=== PATIENT | female | born 1940 ===

== ENCOUNTER 2022-03-12 03:02 | Inpatient (IN) | payer MEDICARE, OTHER ==
[~2022-03-12] VITALS: Ht 147.3 cm; Wt 54.6 kg
[2022-03-12] VITALS (7 sets, daily range): BP systolic 89–109; BP diastolic 49–84
[2022-03-12] MEDS ORDERED: ONDANSETRON 4 MG/2 ML (SDV) Z0FRAN IVP PRN (06:30)
[2022-03-12] MEDS ORDERED: morphine INJ 4 MG/ML 1 ML (VIAL/SYRINGE) IV PRN (06:30)
[2022-03-12] MEDS ORDERED: NITROGLYCERIN 0.4 MG SL TABS BTL 25'S SL PRN (06:30)
[2022-03-12] MEDS ORDERED: PATIENT MAY USE OWN MEDS, ALL PO SCH (06:30)
--- OUTSIDE RECORDS SUMMARY | 2022-03-12 09:50 | XMS REPORT | Clinical Summary ---
Author Author [facility] Organization [facility] Address Unknown Phone Unavailable Care Team Providers Care Cathode Washer Name Role Phone Risa Deleon MD Unavailable Osiris Wesley DO PCP Source Comments Some departments are not documenting in the electronic medical record. If you d o not see the information that you expected, contact Release of Information in [facility] Information Management department at [phone] for further assistan ce in locating additional records.[facility] Allergies Comments Active Allergy Reactions Severity Noted Date Skin irritation. Pt tolerates paper tape Adhesive Tape (Rosins) RASH Medium 020 Pt reports anxiety attack w/ this medication Epinephrine ANXIETY Low 06/27/2019 Benzalkonium Chloride HIVES Medium 12/21/19 16 Cefdinir DIARRHEA Low 12/21/2015 Medications End Date Status Medication Sig Dispensed Refills Start Date Active ALPRAZolam (XANAX) 0.25 Take 0.375 mg 0 mg tablet by mouth daily. Active atenolol (TENORMIN) 50 mg Take 50 mg by 0 tablet mouth twice daily. Active hydrochlorothiazide Take 25 mg by 0 (HYDRODIURIL) 25 mg mouth every tablet morning. Active isosorbide mononitrate SR Take 60 mg by 0 (IMDUR) 60 mg tablet mouth twice daily (at 10AM and 10PM). Active pravastatin (PRAVACHOL) Take 20 mg by 0 20 mg tablet mouth at bedtime daily. Active hyoscyamine (ANASPAZ; Place 125 mcg 0 NULEV; SYMAX FASTABS; under tongue HYOMAX-FT; ED-SPAZ; every 4 hours OSCIMIN) 0.125 mg rapid as needed for dissolve tablet Cramps. Active colestipoL (COLESTID) 1 Take 1 g by 0 gram tablet mouth twice 0 daily. Active docusate (COLACE) 100 mg Take 100 mg 0 06/15 capsule by mouth 6 twice daily. Active pantoprazole DR Take 40 mg by 0 (PROTONIX) 40 mg tablet mouth daily. 0 Active sertraline (ZOLOFT) 50 mg Take 75 mg by 0 04/24 tablet mouth at 0 bedtime daily. Active furosemide (LASIX) 20 mg Take 20 mg by 0 05/01 tabletIndications: edema mouth daily. 0 May take another dose daily as needed for edema Indications: visible water retention Active aspirin EC 81 mg tablet Take 81 mg by 0 mouth daily. Take with food. Active estradioL (VIVELLE-DOT) Apply 1 patch 0 0.1 mg/24 hr patch to top of skin as directed twice weekly. Active lisinopriL (ZESTRIL) 20 Take 2 0 mg tablet tablets by mouth in the morning and 1 tablet in the evening Active oxybutynin XL (DITROPAN Take 5 mg by 0 XL) 5 mg tablet mouth daily. Active nitroglycerin (NITROSTAT) Place 0.4 mg 0 0.4 mg tablet under tongue every 5 minutes as needed for Chest Pain. Max of 3 tablets, call 911. Active calcium carbonate/vitamin Take 1 tablet 0 D-3 (OSCAL-500+D) 1250 by mouth mg/200 unit tablet twice daily. Calcium Carb 1250mg delivers 500mg elemental Ca Active fexofenadine/pseudoephedr Take 1 tablet 0 ine (WADE-D) 60/120 mg by mouth tablet daily. Active vitamins, multiple tablet Take 1 tablet 0 by mouth daily. Active lactobacillus rhamnosus Take 2 0 (GG) (CULTURELLE) 10 capsules by billion cell cap mouth daily. Active Ana powd Mix 2 0 teaspoonsful and drink once daily Active acetaminophen SR Take 0 (TYLENOL) 650 mg tablet 650-1,300 mg by mouth every 6 hours as needed for Pain. Active gabapentin (NEURONTIN) Take 1 tablet 0 08/12/ 02 600 mg tablet by mouth 0 twice daily. Active fluticasone propionate Apply 2 0 (FLONASE) 50 sprays to mcg/actuation nasal each nostril spray, suspension as directed daily. Shake bottle gently before using. Active dextran 70/hypromellose Apply 1 drop 0 (GENTEAL TEARS) 0.1/0.3 % to both eyes dpet ophthalmic solution as Needed for Dry Eyes. Active Magnesium 250 mg tab Take 1 tablet 0 by mouth daily. Active oxyCODONE-acetaminophen Take one 20 tablet 0 (PERCOCET) 7.5-325 mg tablet by 0 tablet mouth three times daily as needed Additional Information Patient taking differently: 1 tablet Oral FOUR TIMES DAILY PRN, Pain, Reported on 09/16/2021 Active potassium chloride Take 20 mEq 0 (KLOR-CON 10) 10 mEq by mouth tablet daily. Take with a meal and a full glass of water. Active simethicone (MYLICON) 80 Chew 160 mg 0 mg chew tablet by mouth every 6 hours as needed for Flatulence. 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 12/21/2015 Lumbar radiculopathy 12/21/2015 Idiopathic scoliosis of thoracolumbar spine 12/21/19 16 Surgical History Surgery Date Site/Laterality Comments BREAST BIOPSY SHOULDER ARTHROSCOPY Left HX APPENDECTOMY BLADDER SURGERY Remove bladder tumor HX HEART CATHETERIZATION 04/24/2011 - stent X2 04/23/2012 HX CATARACT REMOVAL Bilateral CYSTOURETHROSCOPY HERNIA REPAIR HX TONSILLECTOMY HX CHOLECYSTECTOMY NEUROSTIMULATOR PROCEDURE ABDOMINAL EXPLORATION Bowel obstruction s/p appy SURGERY PARTIAL HYSTERECTOMY UTERINE SUSPENSION SHOULDER SURGERY Right X2 VAGINA SURGERY 11/01/2019 N/A COLPOCLEISIS, C LOSURE OF VAGINA, AND PERINEORRHAPHY performed by Maurice Mckeon MD at [facility] OR SURGERY 04/24/2014 - Laparoscopic of abd ominal lesions 04/23/2015 COLONOSCOPY HX ENDOSCOPY VAGINA SURGERY 03/05/2021 Vagina /N/A COLPOCLEISIS pe rformed by Maurice Mckeon MD at [facility] OR CYSTOURETHROSCOPY 03/05/2021 Bladder/N/A CYSTOURETHRO SCOPY performed by Maurice Mckeon MD at [facility] OR Medical History Medical History Date Comments Carotid artery stenosis Back pain Coronary artery disease Hypertension Anxiety disorder Cataract Depression Dyslipidemia Incontinence Urinary tract infection Arthritis back Heart attack (HCC) 2012 Scoliosis Bladder cancer (HCC) 2010 Tumor resection, chemo 03/2016 completed Spinal cord neurostimulator device in situ Murmur, cardiac 2012 History of chemotherapy Colon polyps GERD (gastroesophageal reflux disease) IBS (irritable bowel syndrome) Gastritis Diverticulosis H/O small bowel obstruction Prolapse of female pelvic organs History of degenerative disc disease Does use hearing aid Bilateral Social History Date Tobacco Use Types Packs/Day Years Used Smoking Tobacco: Every Cigarettes 1 50 Day Smokeless Tobacco: Never Tobacco Cessation: Ready to Quit: No Comments: off and on Comments Alcohol Use Standard Drinks/Week Occasional Yes 0 (1 standard drink = 0.6 o z pure alcohol) Sex Assigned at Date Recorded Female 08/27/2019 4:21 PM CDT Obstetrics History Last Filed Vital Signs Reading Time Taken Comments Vital Sign 145/61 11/16/2021 2:58 PM CDT Blood Pressure 83 11/16/2021 2:58 PM CDT Pulse 37 C (98.6 F) 03/05/2021 10:00 AM QUALITY MANAGER Temperature 18 12/21/2015 1:01 PM CDT Respiratory Rate 99% 09/16/2021 8:27 AM CDT Oxygen Saturation - - Inhaled Oxygen Concentration 56.7 kg (125 lb) 11/16/2021 2:58 PM CDT Weight 147.3 cm (4' 10") 11/16/2021 2:58 PM CDT Height 26.13 11/16/2021 2:58 PM CDT Body Mass Index Plan of Treatment Health Maintenance Due Date Last Done Comments MEDICARE ANNUAL WELLNESS 1942 VISIT PNEUMOCOCCAL VACCINE ( - 1948 PCV) DTAP/TDAP VACCINES ( - 1960 Tdap) HEPATITIS C SCREENING 1960 PHYSICAL (COMPREHENSIVE) 1960 EXAM SHINGLES RECOMBINANT 1992 VACCINE (1 of 2) OSTEOPOROSIS 08/09/2007 SCREENING/MONITORING ADVANCED CARE PLANNING 04/24/2021 DISCUSSION AND DOCUMENTATION DEPRESSION SCREENING 04/24/2021 COVID-19 VACCINE (4 - 05/06/2021 03/11/2021, Booster for Moderna 07/15/2020, series) 06/17/2020 INFLUENZA VACCINE 11/22/2021 Results Not on filefrom Last 3 Months Insurance Type Payer Benefit Subscriber ID Effective Phone Address Plan / Dates Group Medicare MEDICARE MEDICARE [id number] 2007-P [phone] [address] [place] [address] HMO [id number] 2015- [phone] [address] Present [address] [place] [id number] Advance Directives Date Inactivated Comments Code Status Date Activated 11/02/2019 5:13 PM Full Code 11/01/2019 6:54 PM Provider has discussed Code Status No, discussion no t w/Patient or Family? necessary based on Dx Care Teams Start Date End Date Cathode Washer Relationship Specialty 12/21/15 Osiris Wesley, DO PCP - General Family [address] [place] [address] 12/18/15 Risa Deleon MD Neurological [address] [facility] [place] [address]
[2022-03-12] MEDS: ASPIRIN E.C. 81 MG (ECOTRIN) TAB PO SCH (10:11)
[2022-03-12] MEDS: NS IV 1000 ML 1,000 ML IV SCH (10:13)
--- NOTE | 2022-03-12 10:35 | History & Physical-Hospitalist ---
History of Present Illness HPI/Chief Complaint Patient is a 81-year-old female with past medical history of coronary artery disease with ME in 2012, hypertension, hyperlipidemia, fibromyalgia who presented to the emergency department due to chest pain. She states it started last night at 10 PM while she was sitting and watching a movie. She took nitro at home and her pain resolved but returned roughly 45 minutes later. This happened 2 more times and it progressed each time as she developed shortness of breath and pain radiating to her jaw and left arm. She decided to seek evaluation in the emergency department. She was found to have an elevated high- sensitivity troponin in the 80s and was transferred here for cardiac evaluation. She does follow with a director of scientific research at [place] and saw him on March 09. She had been having ongoing chest pain at the time and was scheduled for cardiac cath on April 07. She also complains of worsening lower extremity edema and her primary care physician has advised her to double her Lasix which helps some but not like it used to. She denies any pain at this time and her shortness of breath has improved. Source: patient Date Seen 03/12/22 Time Seen by a Provider: 10:15 Attending Physician PCP Admitting Physician: Lm Dai MD Attending Physician: Lm Dai MD Referring Physician Date of Admission Mar 12, 2022 at 9:45 am Home Medications & Allergies Home Medications Reviewed patient Home Medication Reconciliation performed by pharmacy medication reconciliations on call pharmacy technician and/or nursing. Patients Allergies have been reviewed. Allergies Allergies Coded Allergies No Allergy Information Available ([id number]/19/22) Past Bzpeert-Pxuhcu-Qhrxwl Hx Patient Social History Marrital Status: Employed/Student: retired Tobacco Use?: Yes Smoking Status: Current Everyday Smoker Smokeless type used: Sticks Smokeless Tobacco Frequency: Current Everyday User Substance use?: No Substance frequency: Once in a while Alcohol Use?: Yes Alcohol Frequency: Rarely Pt feels they are or have been: No Current Status status: No status: No Advance Directives: No Communicates: Verbally Primary Language: Niuean Preferred Spoken Language: Niuean Is interpretation needed?: No Sensory deficits: Vision impairment Implanted or Applied Medical D: Stents, Other Past Medical History Surgeries: Abdominal (hernia), Appendectomy, Bladder Surgery, Breast, Coronary Stent, Hysterectomy Coronary Artery Disease, Heart Attack, High Cholesterol, Hypertension Neuropathy, Spinal Cord 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 History: Hysterectomy Abdominal Hernia, Irritable Bowel Arthritis, Fibromyalgia, Back Injury Bladder Did You Recieve Any Treatments: Yes What Type of Treatment Did You: Surgical Intervention Family Medical History Reviewed Nursing Family Hx Heart Disease, Cancer, Stroke Review of Systems Constitutional: no symptoms reported EENTM: no symptoms reported Respiratory: No orthopnea; short of breath Cardiovascular: see HPI, chest pain, edema, Hx of Intervention; No palpitations Gastrointestinal: No abdominal pain, No constipation, No diarrhea, No nausea, No vomiting Genitourinary: no symptoms reported Musculoskeletal: no symptoms reported Skin: no symptoms reported Psychiatric/Neurological: No Symptoms Reported Physical Exam Physical Exam Vital Signs Vital Signs - First Documented 03/12/22 10:18 Pulse 74 Capillary Refill : Height, Weight, BMI Height: '" Weight: lbs. oz. kg; 24.51 BMI Method: General Appearance: No Apparent Distress, WD/WN, Thin HEENT: PERRL/EOMI, Moist Mucous Membranes; No Scleral Icterus (L), No Scleral Icterus (R) Neck: Normal Inspection, Supple, Carotid Bruit Respiratory: Lungs Clear, No Accessory Muscle Use, No Respiratory Distress Cardiovascular: Regular Rate, Rhythm, No Murmur, Normal Peripheral Pulses Gastrointestinal: Normal Bowel Sounds, Non Tender, Soft Extremity: Normal Capillary Refill, No Calf Tenderness, No Pedal Edema Neurologic/Psychiatric: Alert, Oriented x3, Normal Mood/Affect Skin: Normal Color, Warm/Dry Results Results/Procedures Labs Patient resulted labs reviewed. Assessment/Plan Admission Diagnosis NSTEMI Admission Status: Inpatient Order (span 2 midnights) Reason for Inpatient Admission: see below Assessment and Plan NSTEMI CAD HTN HLD High sensitivity troponin [address] depression on EKG Case reviewed by ER with cardiology- received therapeutic Lovenox and 300mg Plavix Repeat troponin pending Telemetry NPO Fibromylagia DJD Resume home meds when able DVT ppx: Lovenox given at OSH Diagnosis/Problems Diagnosis/Problems (1) CAD (coronary artery disease) (2) Essential (primary) hypertension (3) HLD (hyperlipidemia) (4) Tobacco abuse (5) DJD (degenerative joint disease) of cervical spine (6) Fibromyalgia (7) History of bladder cancer (8) History of myocardial infarct at age greater than 60 years (9) NSTEMI (non-ST elevated myocardial infarction) Copy Copies To 1: LM Martin MD Mar 12, 2022 10:35
--- NOTE | 2022-03-12 10:44 | Consultation-Cardiology ---
HPI-Cardiology Cardiology Consultation Date of Consultation 03/12/22 Date of Admission Time Seen by Provider: 10:39 Indication: Chest pain HPI 81-year-old lady with history of coronary artery disease, history of stenting in 2011. Has been having chest pain waxing and waning for the past few weeks, became more significant last night associated with shortness of breath. Did not respond to nitroglycerin, high-sensitivity troponin was done at [place] emergency room and it was noted to be elevated. Patient was transferred to our institution. EKG showed ST depression in the anterolateral leads with T wave inversion. Currently feeling better, no active chest pain reported at this point Home Medications & Allergies Allergies: Coded Allergies: No Allergy Information Available (Unverified , 03/12/22) Home Medication List Reviewed: Yes NVB-Raleym-Saykhl Hx Patient Social History Marital Status: Employed/Student: retired Smoking Status: Current Everyday Smoker Have you traveled recently?: No Alcohol Use?: Yes Past Medical History Discussed below Family Medical History Significant Family History: No Pertinent Family Hx Review of Systems-General Review of Systems Constitutional: no symptoms reported, see HPI EENTM: see HPI, no symptoms reported Respiratory: see HPI; No cough; dyspnea on exertion; No hemoptysis, No orthopnea, No phlegm; short of breath; No stridor, No wheezing, No other Cardiovascular: see HPI, chest pain; No edema, No Hx of Intervention, No palpitations, No syncope, No vascular heart diseas, No other Gastrointestinal: no symptoms reported, see HPI Genitourinary: no symptoms reported, see HPI Musculoskeletal: no symptoms reported, see HPI Skin: no symptoms reported, see HPI Psychiatric/Neurological: No Symptoms Reported, See HPI Reviewed Test Results Reviewed Test Results Lab Labs are pending Physical Exam Physical Exam Vital Signs Vital Signs - First Documented 03/12/22 10:18 Pulse 74 Capillary Refill : Height, Weight, BMI Height: '" Weight: lbs. oz. kg; 24.51 BMI Method: General Appearance: No Apparent Distress, WD/WN Eyes: Bilateral Eye Normal Inspection, Bilateral Eye PERRL, Bilateral Eye EOMI HEENT: PERRL/EOMI, TMs Normal, Normal ENT Inspection, Pharynx Normal, Moist Mucous Membranes Neck: Full Range of Motion, Normal Inspection, Non Tender, Supple, Carotid Bruit Respiratory: Chest Non Tender, Normal Breath Sounds, No Accessory Muscle Use, No Respiratory Distress Cardiovascular: Regular Rate, Rhythm, No Edema, No Gallop, No JVD, Normal Peripheral Pulses, Systolic Murmur Gastrointestinal: Normal Bowel Sounds, No Organomegaly, No Pulsatile Mass, Non Tender, Soft Back: Normal Inspection, No CVA Tenderness, No Vertebral Tenderness Extremity: Normal Capillary Refill, Normal Inspection, Normal Range of Motion, Non Tender, No Calf Tenderness, No Pedal Edema Neurologic/Psychiatric: Alert, Oriented x3, No Motor/Sensory Deficits, Normal Mood/Affect Skin: Normal Color, Warm/Dry Lymphatic: No Adenopathy A/P-Cardiology Admission Diagnosis Non-ST elevation myocardial infarction Coronary artery disease Hypertension Hyperlipidemia Assessment/Plan Non-ST elevation myocardial infarction, active chest pain, did not respond initially to nitroglycerin Currently feeling better Have EKG changes Planning to proceed with cardiac catheterization possible PTCA. Coronary artery disease, history of 2 stents placed in 2011. Planning to proceed with cardiac catheterization Hypertension, currently borderline hypotensive. Starting IV fluid and monitor Restart medication and change lisinopril to 40 mg daily Change isosorbide to 30 mg daily Continue on atenolol 50 mg twice daily Continue hydrochlorothiazide 25 mg daily Hyperlipidemia, maintained on pravastatin, restart and monitor lipids History of fibromyalgia, arthralgia, dysarthria, diverticular disease, irritable bowel syndrome, neck pain, lumbago. History of vaginal prolapse History of hiatal hernia, bowel obstruction, removal of malignant bladder tumor, breast biopsy, hysterectomy, adenoidectomy, cataract surgery, repair of rotator cuff TONY HALLMAN MD Mar 12, 2022 10:44
--- NOTE | 2022-03-12 10:54 | Cardiac Procedure Note-CS/ASA ---
Pre-Procedure Note Pre-Op Procedure Note Date of Available H&P: Mar 12, 2022 Date H&P Reviewed: Mar 12, 2022 Time H&P Reviewed: 10:53 History & Physical: H&P Reviewed, Patient Examed, No changes noted Pre-Operative Diagnosis: NSTMI Conscious Sedation Pre-Proced Time 10:54 ASA Score 3 For ASA 3 and 4: Consider anesthesia and medical clearance. Also, for patients with a history of failed moderate sedation consider anesthesia. Airway Lungs Heart ASA score ASA 1: a normal healthy patient ASA 2: a patient with a mild systemic disease (mid diabetes, controlled hypertension, obesity ASA 3: a patient with a severe systemic disease that limits activity (angina, COPD, prior Myocardial infarction) ASA 4: a patient with an incapacitating disease that is a constant threat to life (CHF, renal failure) ASA 5: a moribund patient not expected to survive 24 hrs. (ruptured aneurysm) ASA 6: a declared brain- patient whose organs are being harvested. For emergent operations, add the letter E after the classification Mallampati Classification Grade 3 Sedation Plan Analgesia, Amnesia, Plan communicated to team members, Discussed options with patient/fam, Discussed risks with patient/fam The patient is an appropriate candidate to undergo the planned procedure, sedation, and anesthesia. The patient immediately re-assessed prior to indication. TONY HALLMAN MD Mar 12, 2022 10:54
[2022-03-12] MEDS ORDERED: fentaNYL INJ 100 MCG/2 ML AMP ONE (11:02)
[2022-03-12] MEDS ORDERED: NS IV 1000 ML 1,000 ML ONE (11:03)
[2022-03-12] MEDS ORDERED: LIDOCAINE 1% INJ 30 ML (XYLOCAINE) VIAL ONE (11:03)
[2022-03-12] MEDS ORDERED: HEParin (CATH LAB) 2,000 ML IV ONE (11:03)
[2022-03-12] MEDS ORDERED: HEParin 1000 UNIT/ML (10ML VIAL) FOR BOLUS ONE (11:03)
[2022-03-12] MEDS ORDERED: MIDAZOLAM 5 MG/5 ML (VERSED) VIAL ONE (11:03)
[2022-03-12] MEDS ORDERED: FUROSEMIDE 40 MG/4 ML INJ (LASIX) IVP ONE (11:22)
[2022-03-12 11:23] LABS: BASOPHILS % (AUTO) 0 % (0-10); EOSINOPHILS # (AUTO) 0.1 10^3/uL (0.0-0.3); EOSINOPHILS % (AUTO) 1 % (0-10); HEMATOCRIT 34 % (35-52); LYMPHOCYTES # (AUTO) 3.2 10^3/uL (1.0-4.0); LYMPHOCYTES % (AUTO) 28 % (12-44); MEAN CORPUSCULAR HEMOGLOBIN 30 pg (25-34); MEAN CORPUSCULAR HGB CONC 33 g/dL (32-36); MEAN CORPUSCULAR VOLUME 92 fL (80-99); MEAN PLATELET VOLUME 9.7 fL (9.0-12.2); MONOCYTES # (AUTO) 0.6 10^3/uL (0.0-1.0); MONOCYTES % (AUTO) 5 % (0-12); NEUTROPHILS # (AUTO) 7.5 10^3/uL (1.8-7.8); NEUTROPHILS % (AUTO) 66 % (42-75); PLATELET COUNT 331 10^3/uL (130-400); WHITE BLOOD COUNT 11.5 10^3/uL (4.3-11.0)
[2022-03-12] MEDS ORDERED: morphine INJ 10 MG/ML 1ML (SYR OR VIAL) IVP STA ×2 (11:27→12:07)
[2022-03-12] MEDS ORDERED: FUROSEMIDE 40 MG/4 ML INJ (LASIX) ONE (11:28)
[2022-03-12] MEDS ORDERED: morphine INJ 4 MG/ML 1 ML (VIAL/SYRINGE) ONE (11:37)
[2022-03-12 11:38] LABS: POTASSIUM 3.5 MMOL/L (3.6-5.0)
[2022-03-12 11:39] LABS: CALCIUM 9.6 MG/DL (8.5-10.1)
[2022-03-12] MEDS ORDERED: RT-ALBUTEROL SULF 2.5 MG/3 ML PRE-MIX VIAL ONE (11:39)
[2022-03-12 11:40] LABS: TOTAL PROTEIN 7.7 GM/DL (6.4-8.2)
[2022-03-12 11:42] LABS: BILIRUBIN,TOTAL 0.2 MG/DL (0.1-1.0)
[2022-03-12] MEDS ORDERED: RT-ALBUTEROL SULF 2.5 MG/3 ML PRE-MIX VIAL INH ONE (11:43)
[2022-03-12 11:44] LABS: CREATININE SERUM 1.66 MG/DL (0.60-1.30)
[2022-03-12] MEDS ORDERED: ENOXAPARIN 150 MG/ML (LOVENOX) SYR SQ SCH (11:45)
--- NOTE | 2022-03-12 12:25 | Diagnostic Imaging Report ---
INDICATION: Dyspnea. FINDINGS: There is cardiomegaly. There is moderate venous congestion. No pleural effusion or pneumothorax. Mediastinum is unremarkable. IMPRESSION: Cardiomegaly and moderate central pulmonary venous congestion. Dictated by: Dictated on workstation # [id number]
[2022-03-12] MEDS: ENOXAPARIN 60 MG/0.6 ML (LOVENOX) SYR SC SCH ×2 (12:41→12:44)
[2022-03-12] MEDS: LORazepam 0.5 MG (ATIVAN) TABLET PO PRN (12:41)
[2022-03-12 12:53] LABS: BILIRUBIN,URINE NEGATIVE (NEGATIVE); CLARITY,URINE CLEAR; COLOR,URINE YELLOW; GLUCOSE, URINE (UA) NEGATIVE (NEGATIVE); KETONES,URINE NEGATIVE (NEGATIVE); LEUKOCYTE ESTERASE ,URINE NEGATIVE (NEGATIVE); NITRITE,URINE NEGATIVE (NEGATIVE); PROTEIN,URINE NEGATIVE (NEGATIVE)
[2022-03-12 13:03] LABS: BACTERIA,URINE NEGATIVE /HPF; SQUAMOUS EPITHELIAL CELL,UR 0-2 /HPF
[2022-03-12] MEDS: FUROSEMIDE 40 MG/4 ML INJ (LASIX) IVP SCH (17:31)
[2022-03-12] MEDS ORDERED: OXYC1TAB15 PO (21:27)
[2022-03-12] MEDS ORDERED: GBPN600T PO (21:27)
[2022-03-12] MEDS ORDERED: oxyCODONE/APAP 7.5-325 MG (PERCOCET 7.5) TABLET PO PRN (22:00)
[2022-03-12] MEDS: ATENOLOL 25 MG (TENORMIN) TAB PO SCH (22:32)
[2022-03-12] MEDS: GABAPENTIN 600 MG (NEURONTIN) TAB PO SCH (22:50)
[2022-03-13] VITALS: BP 96/73
[2022-03-13] MEDS: LORazepam 0.5 MG (ATIVAN) TABLET PO PRN (00:27)
[2022-03-13 04:00] VITALS: BP_SYST 101; BP_SYST 73; BP_DIAS 50; BP_DIAS 53
[2022-03-13 05:25] LABS: HEMATOCRIT 33 % (35-52); HEMOGLOBIN 11.1 g/dL (11.5-16.0); MEAN CORPUSCULAR HEMOGLOBIN 30 pg (25-34); MEAN CORPUSCULAR HGB CONC 33 g/dL (32-36); MEAN CORPUSCULAR VOLUME 91 fL (80-99); MEAN PLATELET VOLUME 9.8 fL (9.0-12.2); PLATELET COUNT 318 10^3/uL (130-400); WHITE BLOOD COUNT 9.6 10^3/uL (4.3-11.0)
[2022-03-13 05:57] LABS: CALCIUM 9.1 MG/DL (8.5-10.1); CREATININE SERUM 1.47 MG/DL (0.60-1.30); POTASSIUM 3.3 MMOL/L (3.6-5.0)
[2022-03-13] MEDS ORDERED: POTASSIUM CL 10MEQ/50ML IVPB 100 ML IV ONE (06:23)
[2022-03-13] MEDS: POTASSIUM CL 10MEQ/50ML IVPB 50 ML IV SCH ×2 (06:27→07:41)
[2022-03-13 07:23] VITALS: BP 95/75
[2022-03-13] MEDS: FUROSEMIDE 40 MG/4 ML INJ (LASIX) IVP SCH (07:40)
[2022-03-13] MEDS: NS IV 1000 ML 1,000 ML IV SCH (07:54)
[2022-03-13] MEDS ORDERED: ALPRAZolam 0.25 MG (XANAX) TAB PO NR (09:00)
[2022-03-13] MEDS ORDERED: ASPIRIN E.C. 81 MG (ECOTRIN) TAB PO SCH (09:00)
[2022-03-13] MEDS ORDERED: CLOPIDOGREL 75 MG (PLAVIX) TABLET PO SCH (09:00)
[2022-03-13] MEDS ORDERED: ISOSORBIDE MONONITRATE 30 MG (IMDUR) TAB PO SCH (09:00)
[2022-03-13] MEDS ORDERED: PANTOPRAZOLE 40 MG (PROTONIX) TAB PO SCH (09:00)
[2022-03-13] MEDS ORDERED: lisINopril 40 MG (PRINIVIL) TABLET PO SCH (09:00)
[2022-03-13] MEDS ORDERED: fentaNYL INJ 100 MCG/2 ML AMP ONE (09:09)
[2022-03-13] MEDS ORDERED: MIDAZOLAM 5 MG/5 ML (VERSED) VIAL ONE (09:09)
[2022-03-13] MEDS ORDERED: HEParin 1000 UNIT/ML (10ML VIAL) FOR BOLUS ONE (09:09)
[2022-03-13] MEDS ORDERED: LIDOCAINE 1% INJ 30 ML (XYLOCAINE) VIAL ONE (09:10)
[2022-03-13] MEDS ORDERED: NS IV 1000 ML 1,000 ML ONE (09:11)
[2022-03-13] MEDS ORDERED: HEParin (CATH LAB) 2,000 ML IV ONE (09:11)
[2022-03-13] MEDS ORDERED: ALPRAZolam 0.25 MG (XANAX) TAB ONE (09:13)
--- NOTE | 2022-03-13 09:24 | Cardiology Progress Note ---
Subjective Date Seen by Provider: Mar 13, 2022 Time Seen by Provider: 09:21 Subjective/Events-last exam Patient is feeling better today, breathing better. She was unable to lay down flat yesterday for a heart catheterization, I was concerned about her post procedure that she will be unable to lay down. Perdue catheter was placed and given Lasix. Today she is feeling better. Review of Systems General: No Chills, No Night Sweats, No Fatigue, No Malaise, No Appetite, No Other HEENT: No Head Aches, No Visual Changes, No Eye Pain, No Ear Pain, No Dysphasia, No Sinus Congestion, No Post Nasal Drip, No Sore Throat, No Other Pulmonary: Dyspnea; No Cough, No Pleuritic Chest Pain, No Other Cardiovascular: No: Chest Pain, Palpitations, Orthopnea, Paroxysmal Noc. Dyspnea, Edema, Lt Headedness, Other Objective-Cardiology Exam Last Set of Vital Signs Vital Signs 03/13/22 03/13/22 03/13/22 03/13/22 04:00 07:23 07:38 07:50 Temp 36.2 Pulse 68 Resp 13 B/P (MAP) 95/75 (82) Pulse Ox 96 O2 Delivery Room Air O2 Flow Rate 2.00 I&O Intake and Output 03/13/22 00:00 Intake Total 700 ml Output Total 1900 ml Balance -1200 ml Intake Oral 700 ml Output Urine Total 1900 ml Daily Weight Change No General: Alert, Oriented X3, Cooperative HEENT: Atraumatic, PERRLA Neck: Supple, No JVD, No Thyromegaly Lungs: Normal Air Movement, Other (Bilateral rhonchi) Heart: Regular Rate, Normal S1, Normal S2, Other (Systolic murmur at the left sternal border) Abdomen: Normal Bowel Sounds, Soft, No Tenderness, No Hepatosplenomegaly, No Masses Extremities: No Clubbing, No Cyanosis, No Edema, Normal Pulses, No T enderness/Swelling Skin: No Rashes, No Breakdown, No Significant Lesion Neuro: Normal Gait, Normal Speech, Strength at 5/5 X4 Ext, Normal Tone, Sensation Intact Psych/Mental Status: Mental Status NL, Mood NL Results Lab Laboratory Tests 03/12/22 11:15 03/13/22 05:18 A/P-Cardiology Admission Diagnosis Non-ST elevation myocardial infarction Coronary artery disease Hypertension Hyperlipidemia Assessment/Plan Non-ST elevation myocardial infarction, active chest pain, did not respond initially to nitroglycerin Was unable to lay down flat yesterday due to orthopnea. Lasix was given, good diuresis and she is feeling better I gave her Xanax this morning and planning to proceed with cardiac catheterization Congestive heart failure, acute left ventricular systolic dysfunction, ejection fraction 4550%, probably ischemic in nature Responded to diuretics. 2D echo was done on March 12, 2022 with normal left ventricular size, ejection fraction 45 to 50%, moderate mitral regurgitation, moderate aortic regurgitation, very mild aortic valve stenosis, PA pressure 30 mmHg Coronary artery disease, history of 2 stents placed in 2011. Planning to proceed with cardiac catheterization Hypertension, currently borderline hypotensive. Starting IV fluid and monitor Restart medication and change lisinopril to 40 mg daily Change isosorbide to 30 mg daily Continue on atenolol 50 mg twice daily Continue hydrochlorothiazide 25 mg daily Hyperlipidemia, maintained on pravastatin, restart and monitor lipids History of fibromyalgia, arthralgia, dysarthria, diverticular disease, irritable bowel syndrome, neck pain, lumbago. History of vaginal prolapse History of hiatal hernia, bowel obstruction, removal of malignant bladder tumor, breast biopsy, hysterectomy, adenoidectomy, cataract surgery, repair of rotator cuff TONY HALLMAN MD Mar 13, 2022 09:24
--- NOTE | 2022-03-13 09:36 | Cardiac Procedure Note-CS/ASA ---
Pre-Procedure Note Pre-Op Procedure Note Date of Available H&P: Mar 12, 2022 Date H&P Reviewed: Mar 13, 2022 Time H&P Reviewed: 09:36 History & Physical: H&P Reviewed, Patient Examed, No changes noted Pre-Operative Diagnosis: NSTMI Conscious Sedation Pre-Proced Time 09:36 ASA Score 3 For ASA 3 and 4: Consider anesthesia and medical clearance. Also, for patients with a history of failed moderate sedation consider anesthesia. Airway Lungs Heart ASA score ASA 1: a normal healthy patient ASA 2: a patient with a mild systemic disease (mid diabetes, controlled hypertension, obesity ASA 3: a patient with a severe systemic disease that limits activity (angina, COPD, prior Myocardial infarction) ASA 4: a patient with an incapacitating disease that is a constant threat to life (CHF, renal failure) ASA 5: a moribund patient not expected to survive 24 hrs. (ruptured aneurysm) ASA 6: a declared brain- patient whose organs are being harvested. For emergent operations, add the letter E after the classification Mallampati Classification Grade 3 Sedation Plan Analgesia, Amnesia, Plan communicated to team members, Discussed options with patient/fam, Discussed risks with patient/fam The patient is an appropriate candidate to undergo the planned procedure, sedation, and anesthesia. The patient immediately re-assessed prior to indication. TONY HALLMAN MD Mar 13, 2022 09:36
--- NOTE | 2022-03-13 09:51 | Progress Note - Hospitalist ---
Subjective HPI/CC On Admission Date Seen by Provider: Mar 13, 2022 Patient is a 81-year-old female with past medical history of coronary artery disease with AR in 2012, hypertension, hyperlipidemia, fibromyalgia who presented to the emergency department due to chest pain. She states it started last night at 10 PM while she was sitting and watching a movie. She took nitro at home and her pain resolved but returned roughly 45 minutes later. This happened 2 more times and it progressed each time as she developed shortness of breath and pain radiating to her jaw and left arm. She decided to seek evaluation in the emergency department. She was found to have an elevated high- sensitivity troponin in the s and was transferred here for cardiac evaluation. She does follow with a alliance director at [facility] and saw him on March 09. She had been having ongoing chest pain at the time and was scheduled for cardiac cath on April 07. She also complains of worsening lower extremity edema and her primary care physician has advised her to double her Lasix which helps some but not like it used to. She denies any pain at this time and her shortness of breath has improved. Subjective/Events-last exam Pt reports doing well today. 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 Given lasix yesterday. Breathing improved. No complaints. Objective Exam Vital Signs Vital Signs Date Time Temp Pulse Resp B/P (MAP) Pulse Ox O2 Delivery O2 Flow Rate FiO2 03/13/22 07:50 Room Air 03/13/22 07:38 68 03/13/22 07:23 36.2 13 95/75 (82) 96 03/13/22 04:00 2.00 Capillary Refill : General Appearance: No Apparent Distress, Anxious Respiratory: Lungs Clear, No Respiratory Distress Cardiovascular: Regular Rate, Rhythm, Systolic Murmur Gastrointestinal: Normal Bowel Sounds, Non Tender, Soft Neurologic/Psychiatric: Alert, Oriented x3 Results/Procedures Lab Laboratory Tests 03/12/22 11:15 03/13/22 05:18 Patient resulted labs reviewed. Assessment/Plan Assessment and Plan Assess & Plan/Chief Complaint NSTEMI CAD HTN HLD Troponin trending up Cardioogy consulted, appreciate recs Plavix and ASA Plan for cath today Continue lasix Replace potassium Telemetry BP a little soft, trend with BP meds Fibromylagia DJD Continue gabapentin and oxycodone DVT ppx: Lovenox Diagnosis/Problems Diagnosis/Problems (1) CAD (coronary artery disease) (2) Essential (primary) hypertension (3) HLD (hyperlipidemia) (4) Tobacco abuse (5) DJD (degenerative joint disease) of cervical spine (6) Fibromyalgia (7) History of bladder cancer (8) History of myocardial infarct at age greater than 60 years (9) NSTEMI (non-ST elevated myocardial infarction) LM GILL MD Mar 13, 2022 09:51
--- NOTE | 2022-03-13 10:07 | Discharge Inst-Post CATH ---
Discharge Inst-CATH/EP Problems Reviewed?: Yes Post Cardiac Cath/EP D/C Inst Follow Up/Plan Appointment with Dr. Curry's office in 2 to 4 weeks <b>CARDIAC CATH/EP PROCEDURE DISCHARGE INSTRUCTIONS</b> ACTIVITY * Go Home directly and rest. * Limit activity of the leg (or wrist if it was used) for 7 days including aer obics, swimming, jogging, bicycling, etc. * Restrict stair-climbing for 7 days if possible, if not, climb up with your non-cath leg, then bring together on the same step. * Avoid lifting, pushing, pulling or excessive movement of the affected extremi ty for 7 days. * Customary sexual activity may be resumed after 2 days-use caution not to use a position that strains or causes pain to the affected extremity. * No driving for 24 hours. * NO SMOKING. * Avoid straining for bowel movements for 7 days. * Gentle walking on level ground is allowed. * Returning to work will depend on the type of procedure and the results. Your doctor will discuss this with you. CALL YOUR DOCTOR FOR ANY OF THE FOLLOWING: *If bleeding from the puncture site occurs- Apply gentle pressure to site with clean cloth and call your doctor or EMS. * If a knot or lump forms under the skin, increases in size, or causes pain. * If bruising appears to be worsening or moving further down your leg instead of disappearing. * Temperature above 101 F. CARE OF YOUR GROIN INCISION; * Bruising or purple discoloration of the skin near the puncture site is common. * You may shower only, no bathtub bathing for 5 days. Be careful to avoid slipping as your leg may feel stiff. * If a closure device was used on your femoral artery, please see the attached guide regarding care of the device and your leg. * Leave dressing on FOR 24 hours. CARE OF YOUR WRIST INCISION; * Bruising or purple discoloration of the skin near the puncture site is common. * You may shower. * DO NOT submerge wrist. * Leave dressing on FOR 24 hours. TONY CURRY MD Mar 13, 2022 10:07
[2022-03-13] MEDS ORDERED: ASPI-1238 PO (10:11)
[2022-03-13] MEDS ORDERED: ATOR40TA PO (10:11)
--- NOTE | 2022-03-13 10:14 | Discharge Summary ---
Diagnosis/Chief Complaint Date of Admission Mar 12, 2022 at 09:45 Date of Discharge Discharge Date: Mar 13, 2022 Admission Diagnosis NSTEMI Primary Care Discharge Diagnosis (1) CAD (coronary artery disease) (2) Essential (primary) hypertension (3) HLD (hyperlipidemia) (4) Tobacco abuse (5) DJD (degenerative joint disease) of cervical spine (6) Fibromyalgia (7) History of bladder cancer (8) History of myocardial infarct at age greater than 60 years (9) NSTEMI (non-ST elevated myocardial infarction) Discharge Summary Procedures/Consulations Dr Curry- Cardiology Discharge Physical Exam Allergies: Coded Allergies: No Allergy Information Available (Unverified , 03/12/22) Vitals & I&Os Vital Signs Date Time Temp Pulse Resp B/P (MAP) Pulse Ox O2 Delivery O2 Flow Rate FiO2 03/13/22 07:50 Room Air 03/13/22 07:38 68 03/13/22 07:23 36.2 13 95/75 (82) 96 03/13/22 04:00 2.00 General Appearance: No Apparent Distress, WD/WN Cardiovascular: Regular Rate, Rhythm, Systolic Murmur Gastrointestinal: Normal Bowel Sounds, Soft Neurologic/Psychiatric: Alert, Oriented x3 Hospital Course Patient was admitted to the hospital secondary to NSTEMI from [facility]. Cardiac cath was attempted on day of admission but she had an episode of flash pulmonary edema and was unable to tolerate lying flat for the cath or recovery so cath was canceled. She was diuresed with IV Lasix and did well and went for cardiac cath today where she was found to have severe three- vessel disease. Dr. Curry discussed the case with [facility] who accepted her in transfer. She was discharged in stable condition via EMS. Labs (last 24 hrs) Laboratory Tests 03/12/22 11:15: White Blood Count 11.5H, Red Blood Count 3.69L, Hemoglobin 11.0L, Hematocrit 34L , Mean Corpuscular Volume 92, Mean Corpuscular Hemoglobin 30, Mean Corpuscular Hemoglobin Concent 33, Red Cell Distribution Width 14.7H, Platelet Count 331, Mean Platelet Volume 9.7, Immature Granulocyte % (Auto) 0, Neutrophils (%) (Auto) 66, Lymphocytes (%) (Auto) 28, Monocytes (%) (Auto) 5, Eosinophils (%) (Auto) 1, Basophils (%) (Auto) 0, Neutrophils # (Auto) 7.5, Lymphocytes # (Auto) 3.2, Monocytes # (Auto) 0.6, Eosinophils # (Auto) 0.1, Basophils # (Auto) 0.0, Immature Granulocyte # (Auto) 0.0, Sodium Level 138, Potassium Level 3.5L, Chloride Level 102, Carbon Dioxide Level 22, Anion Gap 14, Blood Urea Nitrogen 48H, Creatinine 1.66H, Estimat Glomerular Filtration Rate 31, BUN/Creatinine Ratio 29, Glucose Level 79, Calcium Level 9.6, Corrected Calcium 9.6, Total Bilirubin 0.2, Aspartate Amino Transf (AST/SGOT) 17, Alanine Aminotransferase (ALT/SGPT) 15, Alkaline Phosphatase 82, Troponin I 0.126H, B-Type Natriuretic Peptide 906.9H, Total Protein 7.7, Albumin 4.0 03/12/22 12:49: Urine Color YELLOW, Urine Clarity CLEAR, Urine pH 6.0, Urine Specific [place] <=1.005, Urine Protein NEGATIVE, Urine Glucose (UA) NEGATIVE, Urine Ketones NEGATIVE, Urine Nitrite NEGATIVE, Urine Bilirubin NEGATIVE, Urine Urobilinogen 0.2, Urine Leukocyte Esterase NEGATIVE, Urine RBC (Auto) NEGATIVE, Urine RBC NONE, Urine WBC NONE, Urine Squamous Epithelial Cells 0-2, Urine Crystals NONE, Urine Bacteria NEGATIVE, Urine Casts NONE, Urine Mucus NEGATIVE, Urine Culture Indicated NO 03/13/22 05:18: White Blood Count 9.6, Red Blood Count 3.69L, Hemoglobin 11.1L, Hematocrit 33L, Mean Corpuscular Volume 91, Mean Corpuscular Hemoglobin 30, Mean Corpuscular Hemoglobin Concent 33, Red Cell Distribution Width 14.6H, Platelet Count 318, Mean Platelet Volume 9.8, Sodium Level 138, Potassium Level 3.3L, Chloride Level 100, Carbon Dioxide Level 23, Anion Gap 15H, Blood Urea Nitrogen 47H, Creatinine 1.47H, Estimat Glomerular Filtration Rate 36, BUN/Creatinine Ratio 32, Glucose Level 98, Calcium Level 9.1, Troponin I 0.503*H, Magnesium Level 2.0, Triglycerides Level 223H, Cholesterol Level 197, LDL Cholesterol Direct 111, VLDL Cholesterol 45H, HDL Cholesterol 42 Patient resulted labs reviewed. Pending Labs Laboratory Tests 03/13/22 05:18: White Blood Count 9.6, Red Blood Count 3.69, Hemoglobin 11.1, Hematocrit 33, Mean Corpuscular Volume 91, Mean Corpuscular Hemoglobin 30, Mean Corpuscular Hemoglobin Concent 33, Red Cell Distribution Width 14.6, Platelet Count 318, Mean Platelet Volume 9.8, Sodium Level 138, Potassium Level 3.3, Chloride Level 100, Carbon Dioxide Level 23, Anion Gap 15, Blood Urea Nitrogen 47, Creatinine 1.47, Estimat Glomerular Filtration Rate 36, BUN/Creatinine Ratio 32, Glucose Level 98, Calcium Level 9.1, Magnesium Level 2.0, Troponin I 0.503, Triglyceride s Level 223, Cholesterol Level 197, LDL Cholesterol Direct 111, VLDL Cholesterol 45, HDL Cholesterol 42 Discussion & Recommendations Discharge Planning: >30 minutes discharge planning Discharge Home Medications: Active Scripts Active Aspirin EC (Aspirin) 81 Mg Tablet.dr 81 Mg PO DAILY Lipitor (Atorvastatin Calcium) 40 Mg Tablet 80 Mg PO HS Reported Gabapentin 600 Mg Tablet 600 Mg PO BID Oxycodon-Acetaminophen 7.5-325 (Oxycodone HCl/Acetaminophen) 7.5 Mg-325 Mg Tablet 1 Each PO Q6H MDD 4 7 Days Instructions to patient/family Please see electronic discharge instructions given to patient. Copy Copies To 1: LM Aguillon MD Mar 13, 2022 10:14
[2022-03-13] MEDS ORDERED: PATIENT MAY USE OWN MEDS, ALL PO SCH (10:15)
[2022-03-13] MEDS ORDERED: NS IV 1000 ML 1,000 ML IV SCH (10:15)
--- NOTE | 2022-03-13 10:16 | Cardiac Cath Report ---
Cardiac Cath Report Physician (s)/Miscellaneous Machine Operator (s) Physician TONY HALLMAN MD Pre-Procedure Diagnosis Pre-Procedure Diagnosis: NSTMI Post-Procedure Note Procedure Start Date: Mar 13, 2022 Name of Procedure: Left heart catheterization Findings/Procedure Note PROCEDURE NOTE: 81-year-old lady with a history of coronary artery disease, admitted with non-ST elevation myocardial infarction, cardiac catheterization was advised. Patient was unable to lay down flat on the first day, did not have any acute EKG changes, I decided to diurese her and postpone the procedure for 24 hours. A fter aggressive diuresis patient is feeling better, she was able to lay down flat without difficulties. Procedure was advised. After explaining the procedure to the patient, all pros and cons were explained, all questions were answered. The patient signed the consent and then she was placed on the cardiac catheterization laboratory. Groin was prepped SL fashion local anesthesia was used. Sheath placed in the right femoral artery. Aura right and left catheter were used to access the coronary system. Aura right was prolapsed to the left ventricular cavity, pressure was measured, no LV gram was done. At the end of the procedure the sheath was removed. Closure device was deployed FINDINGS: Hemodynamics LV 124/11, end-diastolic pressure of 11 Aorta 112/48 mean of 71 ANATOMY: Left Main is calcified with severe distal stenosis, 80% Left Anterior Descending is moderately calcified with 90% proximal stenosis involving diagonal branch Left Circumflex has 40% stenosis at the midportion Right Coronary Artery has stents extending from the proximal to distal portion, 95% stenosis in the mid right coronary artery and distally there is a 60% stenosis, dominant artery LV Gram was not done, pressure was measured CONCLUSION: 1. Severe multivessel coronary artery disease involving calcified distal left main coronary artery stenosis, subtotal occlusion in the proximal LAD involving diagonal branch, subtotal occlusion in the mid right coronary artery and severe stenosis in the mid right coronary artery both lesions are within the stent 2. Preserved left ventricular systolic function, echocardiogram was done with ejection fraction 45 to 50%, left ventricular end-diastolic pressure 11 DISCUSSION AND RECOMMENDATION: Hospital course: Patient was admitted, aggressive diuresis was initiated, cardiac catheterization was done showing multivessel coronary artery disease, Dr. Bray was contacted who graciously accepted the patient for transfer for evaluation for bypass surgery I discussed the management plan with Dr. Dai Final diagnoses Non-ST elevation myocardial infarction Coronary artery disease Hypertension Hyperlipidemia Anesthesia Type: Conscious Sedation Estimated blood loss (mL): 15 ml Contrast Amount: 28 ml Total Radiation Dose: 118 mGy Post-Procedure Diagnosis Post-operative diagnosis: Final diagnosis: Non-ST elevation myocardial infarction Coronary artery disease Hypertension Hyperlipidemia TONY HALLMAN MD Mar 13, 2022 10:16
[2022-03-13 10:20] VITALS: BP 112/59
[2022-03-13] MEDS: ASPIRIN E.C. 81 MG (ECOTRIN) TAB PO SCH (10:33)
[2022-03-13] MEDS: ATENOLOL 25 MG (TENORMIN) TAB PO SCH (10:34)
[2022-03-13] MEDS: GABAPENTIN 600 MG (NEURONTIN) TAB PO SCH (10:34)
[2022-03-13 12:00] VITALS: BP 113/49
[2022-03-13 12:44] VITALS: BP 113/49
[2022-03-13] MEDS ORDERED: GABAPENTIN 600 MG (NEURONTIN) TAB PO SCH (22:00)
== END 2022-03-13 12:15 | disposition short-term general hospital (02) | DRG 280 ==
LOC: CSD 09:45
PROVIDERS: ADMIT Family Medicine; ATTEND Family Medicine
PROC: 4A023N7 Measurement of Cardiac Sampling and Pressure, Left Heart, Percutaneous Approach (ICD-10-PCS; principal; 2022-03-13)
PROC: B2111ZZ Fluoroscopy of Multiple Coronary Arteries using Low Osmolar Contrast (ICD-10-PCS; 2022-03-13)
DX: I21.4 Non-ST elevation (NSTEMI) myocardial infarction (principal); I50.21 Acute systolic (congestive) heart failure; T82.855A Stenosis of coronary artery stent, initial encounter; I25.10 Atherosclerotic heart disease of native coronary artery without angina pectoris; I11.0 Hypertensive heart disease with heart failure; E78.00 Pure hypercholesterolemia, unspecified; M79.7 Fibromyalgia; F17.290 Nicotine dependence, other tobacco product, uncomplicated; H54.7 Unspecified visual loss; G62.9 Polyneuropathy, unspecified; M19.91 Primary osteoarthritis, unspecified site; M47.812 Spondylosis without myelopathy or radiculopathy, cervical region; I08.0 Rheumatic disorders of both mitral and aortic valves
CPT/HCPCS: 36415; 71045; 80048; 80053; 80061; 81000; 83735; 83880; 84484; 85025; 85027; 93306; 93458